=== PATIENT | female | born 1995 | race African-American/Black ===

== ENCOUNTER 2020-03-22 12:35 | Emergency (ER) | payer SELFPAY ==
--- OUTSIDE RECORDS SUMMARY | 2020-03-22 12:37 | XMS REPORT | Continuity of Care Document ---
:1995 Author Organization [facility] t Address [address] [place] [address] Care Team Providers Name Role Phone Shen MARQUEZ Attending Clinician Doctor Unassigned, Name Attending Clinician Unavailable Mireille ZHU, S Attending Clinician Singer HERRERA Attending Clinician Sarah MARQUEZ, F Attending Clinician Problems This patient has no known problems. Allergies, Adverse Reactions, Alerts This patient has no known allergies or adverse reactions. Medications This patient has no known medications. Procedures This patient has no known procedures. Encounters Start End Encounter Admission Attending Care Care Encounter Source Date/Time Date/Time Type Type Clinicians Facility Department ID 2019-11-23 2019-11-23 Emergency LACHELLE Gotti [id number] 14:04:28 16:49:00 Vidya Sharmin [id number] [place] [id number] [place] [id number] 2019-11-23 2019-11-23 Orders Doctor GAR [id number] 00:00:00 00:00:00 Only UnassignedERI [id number] [place] [facility] [id number] 2019-03-17 2019-03-17 Emergency LACHELLE Knedrick [id number] 16:18:02 16:57:00 Shakira Goff Sharmin [id number] [place] [id number] [place] [id number] 2019-03-03 2019-03-03 Emergency , [facility] [id number] 06:47:02 08:15:00 [place] Sharmin [id number] [place] [id number] [place] [id number] 2019-02-17 2019-02-17 Emergency Yayadonavonnalinimateus, [facility] [id number] 10:04:48 13:17:00 Keisha Finney [id number] [place] [id number] [place] [id number] 2019-02-17 2019-02-17 Orders Doctor RIN [id number] 00:00:00 00:00:00 Only Unassigned, ERI [id number] [place] [facility] [id number] Results This patient has no known results.
[2020-03-22 13:02] LABS: Absolute Lymphocytes (CBC) 1.3 K/uL (0.7-4.9); Basophils % 0.6 % (0-1.3); Hematocrit 41.8 % (36.0-45.0); Lymphocytes % 12.7 % (15.3-44.8); MPV 10.8 fL (7.6-11.3); RBC Red Blood Cell Count 4.46 M/uL (3.86-4.86)
[2020-03-22 13:17] LABS: Albumin 4.2 g/dL (3.4-5.0); Bilirubin Direct 0.1 mg/dL (0-0.2); Bilirubin Total 0.3 mg/dL (0.2-1.0); Potassium 3.6 mmol/L (3.5-5.1); Protein, Total 7.7 g/dL (6.4-8.2)
[2020-03-22] MEDS ORDERED: MORPHINE 4 MG/ML SYR ONE (13:41)
[2020-03-22] MEDS ORDERED: ONDANSETRON 4 MG/2 ML VIAL ONE (13:42)
[2020-03-22 13:56] LABS: Urine Blood NEGATIVE (NEG); Urine Glucose NEGATIVE (NEG); Urine Protein TRACE (NEG); Urine pH 8.5 (5.0-7.0)
[2020-03-22] MEDS ORDERED: MAGNE/ALUM HYDROXD 30 ML UCUP ONE (14:31)
[2020-03-22] MEDS ORDERED: DICYCLOMINE HCL 10 MG CAP ONE (14:31)
[2020-03-22] MEDS ORDERED: LIDOCAINE VISCOUS 2% SOLN 15 ML UDC ONE (14:31)
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
[2020-03-22 15:44] VITALS: TEMP 97.4
[2020-03-22 15:47] VITALS: BP 112/82; O2SAT 99
== END 2020-03-22 15:25 | disposition home or self-care (01) ==
LOC: ER 12:35
DX: K52.9 Noninfective gastroenteritis and colitis, unspecified (principal)
CPT/HCPCS: 36415; 80048; 80076; 81003; 81025; 83690; 85025; 96374; 96375; 99284; J2405